=== PATIENT | female | born 1990 ===

== ENCOUNTER 2017-04-01 16:07 | Emergency (ER) | payer OTHER ==
[2017-04-01 17:20] LABS: RBC URINE 2 /hpf (0-3); URINE BACTERIA OCC (<OCC); URINE BILIRUBIN NEGATIVE (NEGATIVE); URINE BLOOD NEGATIVE (NEGATIVE); URINE COLOR Yellow (YELLOW); URINE GLUCOSE (UA) NORMAL (Normal); URINE KETONE TRACE mg/dL (NEGATIVE); URINE LEUKOCYTE ESTERASE 2+ Leu/uL (Negative); URINE PROTEIN NEGATIVE (NEGATIVE); URINE UROBILINOGEN NORMAL mg/dL (0.2-1.0); WBC URINE 12 /hpf (0-5)
--- NOTE | 2017-04-01 17:37 | OBHP ---
Datetime: 04/01/2017 16:54 IP Adm Impression: , intrauterine ; No Active Labor Admit Comment, IP Provider: 26 yo P1, LMP 07/25/16, VINAY 04/30/17, EGA 35w 6d c/o more noticeable SOB e arlier today approx 12 noon; and 1 episode of vomiting after eating her usual breakfast of egg, bread and tea - no further vomiting since. Also, c/o generalized lower abdominal discomfort - all of whic h more significant since earlier today. (+) AFM; denies LOF, VB, Ctx. Ob: Dr. Karley Wei. SOB noted x "weeks ago"; started on iron for anemia, a most probable contributing factor. Patient de nies any other issues P Ob: 2013, C/S, female 2.75 Kg, Gest HTN; Mulu. 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 Iron - BID Soc Hx: denies tobacco, illicit drug or EtOH use. x 5 years. Not working. Fam Hx: Mother alive 55 - heart disease, S/P [place] and angioplasty. Father alive 60 - heart disease, S/P [place] and bypass. No known fam h/o cancer P.E.: as above. Small, in NAD. Awake, alert, oriented to time, person and place. Pleasant and coop erative. Assessment: 26 y.o. P1, 35w 6d, prev C/S, SOB, anemia, vomited x 1 earlier today. SOB is long-sta nding; per priv OB - patient has had a negative ECG by her primary internal medicine provider. Has co unseled patient on cardiology consultation. Vital signs are stable. Oxygen saturation 98% on room air . Category 1 tracing. Clinically stable. R/O UTI Plan: 1) U/A (treat for UTI if suggestive) 2) Observe - as per Dr. Wei Addendum: 1731` hours U/A: leuk esterase 2+; WBC 12. S.G. 1/105, pH 7; hazy Assessment: early UTI. Anemia - as above. Patient instructed to increase p.o. intake of water and to continue iron supplementation. Per Dr. Wei will provide patient with information for cardiology consultation at time of visit 04/06/17. Clinically stable. Plan: 1) Discharge home 2) Rx: keflex 500 mg po BID x 7days 3) Reviewed S/S PTL 4) Continue PNV and iron 5) Keep next scheduled appointment Pelvic Type - PN: Adequate Extremities - PN: Normal Abdomen - PN: Normal Back - PN: Normal Breast - PN: Not Done Lungs - PN: Normal Heart - PN: Normal Thyroid - PN: Not Done Neurologic - PN: Normal HEENT - PN: Normal General - PN: Normal Presentation-Admit: Vertex FHR - Baseline A Provider: 145 Contraction Comments Provider: none Comments, ACOG Physical Exam: Back: no CVA tenderness Abdomen: gravid. soft; non tender in all quadrants. Healed Pfannenstiel scar All other systems reviewed and are negative Gestation - Est Wks by US: 35w 6d EGA AdmitDate IP: 35.6 Vital Signs Provider: Reviewed; Within Normal Limits IP Chief Complaint: Maternal discomfort NICHD Variability Prov Fetus A: Moderate 6-25bpm NICHD Accel Fetus A IP Provider: 15X15 FHR Category Provider Fetus A: Category I NICHD Decel Fetus A IP Provider: None Dilatation, Provider: 0 Effacement, Provider: 0 Station, Provider: -3 Genitourinary Exam: Normal DTRs - PN: Not Done
== END 2017-04-01 17:35 | disposition home or self-care (01) ==
LOC: C.EROB 16:07
DX: O23.43 Unspecified infection of urinary tract in pregnancy, third trimester (principal); O99.013 Anemia complicating pregnancy, third trimester; Z3A.35 35 weeks gestation of pregnancy

== ENCOUNTER 2017-04-30 09:23 | Inpatient (IN) | payer OTHER ==
--- NOTE | 2017-04-30 13:48 | OBHP ---
Datetime: 04/30/2017 13:00 IP Adm Impression: Term, intrauterine IP Admit Plan: Admit to unit Admit Comment, IP Provider: chief complaint-contractions HPI 26 y/o at 40 wga with c/o contractions.pain 6/10 since last night. pt denies vaginal blee ding or loss of fluid,patient denies nausea, vomiting, headache, chest pain, shortness of breath course uncomplicated P Ob: 2013, C/S, female 2.75 Kg, Gest HTN; Mulu. 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 Iron - BID Soc Hx: denies tobacco, illicit drug or EtOH use. x 5 years. Not working. Fam Hx: Mother alive 55 - heart disease, S/P [place] and angioplasty. Father alive 60 - heart disease, S/P [place] and bypass. No known fam h/o cancer Bedside Sonogram KATHY 4.8cm, BPP 6/8 vtx, anterior placeta Exam see exam section A/P 39 y/o at 40 wga with oligohydramnios Pelvic Type - PN: Adequate Extremities - PN: Normal Abdomen - PN: Normal Back - PN: Normal Lungs - PN: Normal Heart - PN: Normal Neurologic - PN: Normal General - PN: Normal Weight - Estimated: 3400 FHR - Baseline A Provider: 135 Membranes, Provider: Intact Contraction Comments Provider: irregular Gestation - Est Wks by US: 40.0 IP Hx Assessment: The History has been Reviewed and is Current EGA AdmitDate IP: 40.0 Vital Signs Provider: Reviewed; Within Normal Limits IP Chief Complaint: Uterine contractions NICHD Variability Prov Fetus A: Moderate 6-25bpm NICHD Accel Fetus A IP Provider: 15X15 FHR Category Provider Fetus A: Category I NICHD Decel Fetus A IP Provider: None Dilatation, Provider: 1 Effacement, Provider: 30 Station, Provider: -3 Genitourinary Exam: Normal DTRs - PN: Normal
[2017-04-30] MEDS ORDERED: Sodium Citrate/Citric Acid 15 ml Sol PO ONE (14:02)
[2017-04-30] MEDS ORDERED: Oxycodone/Acetaminophen 5/325 mg Tab PO PRN (14:03)
[2017-04-30 14:15] LABS: BASO % 0.3 % (0.0-2.0); EOS % 0.6 % (0.0-4.0); HEMOGLOBIN 12.5 g/dL (11.0-16.0); LYMPH # 1.5 K/uL (1.0-4.3); LYMPH % 19.5 % (20.0-40.0); MEAN CELL VOLUME 93.6 fL (81.0-99.0); MEAN CORPUSCULAR HEMOGLOBIN 31.6 pg (27.0-31.0); MEAN CORPUSCULAR HGB CONC 33.7 g/dL (33.0-37.0); MEAN PLATELET VOLUME 10.9 fL (7.2-11.7); MONO # 0.5 K/uL (0.0-0.8); MONO % 6.9 % (0.0-10.0); NEUT # 5.6 K/uL (1.8-7.0); NEUT % 72.7 % (50.0-75.0); RBC 3.96 Mil/uL (3.80-5.20); RED CELL DISTRIBUTION WIDTH 13.3 % (11.5-14.5); WHITE BLOOD COUNT 7.8 K/uL (4.8-10.8)
[2017-04-30 14:25] LABS: ALBUMIN 3.4 g/dL (3.5-5.0); SQUAMOUS EPITHIAL 15 /hpf (0-5); URINE BACTERIA MANY (<OCC); URINE BILIRUBIN NEGATIVE (NEGATIVE); URINE BLOOD 1+ (NEGATIVE); URINE CLARITY Hazy (Clear); URINE COLOR Yellow (YELLOW); URINE GLUCOSE (UA) NORMAL (Normal); URINE LEUKOCYTE ESTERASE 1+ Leu/uL (Negative); URINE NITRATE NEGATIVE (NEGATIVE); URINE PROTEIN NEGATIVE (NEGATIVE); URINE UROBILINOGEN NORMAL mg/dL (0.2-1.0)
[2017-04-30] MEDS ORDERED: Morphine 4 MG/ML VIAL ONE (14:25)
[2017-04-30 14:28] LABS: ALB/GLOB RATIO 0.9 (1.0-2.1); AST/SGOT 19 U/L (14-36); GFR AFRICAN-AMERICAN > 60; GFR NON-AFRICAN AMERICAN > 60
[2017-04-30 14:29] LABS: ALT/SGPT 24 U/L (9-52); BLOOD UREA NITROGEN 8 mg/dL (7-17); CALCIUM 8.9 mg/dl (8.6-10.4)
[2017-04-30 14:59] LABS: HEPATITIS B SURFACE AG NEGATIVE (NEGATIVE)
[2017-04-30] MEDS ORDERED: cefOXitin IV 2 gm in Dextrose 2 GM/50 ML BAG IVPB ONE (15:00)
[2017-04-30] MEDS ORDERED: Phenylephrine 10 mg/ml Inj ONE (15:50)
[2017-04-30] MEDS: Simethicone 80 mg Chewtab PO SCH ×2 (18:55→22:58)
[2017-04-30] MEDS ORDERED: Morphine 4 MG/ML VIAL IVP PRN (20:38)
[2017-04-30] MEDS: cefOXitin IV 2 gm in Dextrose 2 GM/50 ML BAG IVPB SCH (21:33)
[2017-05-01] MEDS: cefOXitin IV 2 gm in Dextrose 2 GM/50 ML BAG IVPB SCH ×2 (06:14→13:48)
[2017-05-01 07:30] LABS: BASO % 0.2 % (0.0-2.0); EOS % 0.4 % (0.0-4.0); HEMOGLOBIN 10.9 g/dL (11.0-16.0); LYMPH # 0.9 K/uL (1.0-4.3); LYMPH % 10.6 % (20.0-40.0); MEAN CELL VOLUME 93.7 fL (81.0-99.0); MEAN CORPUSCULAR HEMOGLOBIN 31.1 pg (27.0-31.0); MEAN CORPUSCULAR HGB CONC 33.2 g/dL (33.0-37.0); MEAN PLATELET VOLUME 10.9 fL (7.2-11.7); MONO # 0.5 K/uL (0.0-0.8); MONO % 5.7 % (0.0-10.0); NEUT # 7.2 K/uL (1.8-7.0); NEUT % 83.1 % (50.0-75.0); RBC 3.49 Mil/uL (3.80-5.20); RED CELL DISTRIBUTION WIDTH 13.3 % (11.5-14.5); WHITE BLOOD COUNT 8.6 K/uL (4.8-10.8)
--- NOTE | 2017-05-01 09:18 | PCM.SURG1 ---
Surgeon's Initial Post Op Note - Surgeon's Notes Surgeon: Karley Wei MD Head Athletic Trainer/Strength Coach: Cristo Pereira MD Type of Anesthesia: Spinal Pre-Operative Diagnosis: Previous Cesearean section, deborah in labor, oligohyramnios, Term intrauterien Operative Findings: live , cephalic presentation, agpars 9,9 wegiht 7lbs2 ounces, normal appearing uterus, tubes adn ovareis bilaerally, mortgage or loan underwriter present for delivery. Dr Cristo Pereira was surgial patent legal assistant and present for entire case and essential in gaining entry retraction, expsoure holidng bladder blade, helping to delivery baby, closing all layers and obtaining hemostasis. Post-Operative Diagnosis: same as above Operation Performed: Repeat Low Transverse Cecsearen section Specimen/Specimens Removed: placenta Estimated Blood Loss: EBL {In ML}: 700 Blood Products Given: N/A Drains Used: No Drains Date of Surgery/Procedure: 04/30/17 Time of Surgery/Procedure: 15:00
--- NOTE | 2017-05-01 09:21 | CP.PCM.PN ---
Subjective - Date & Time of Evaluation Date of Evaluation: 05/01/17 Time of Evaluation: 07:30 - Subjective Subjective: pt seen adn elier and reports pian controlled. pt states just got out of bed, not yet voided as rodriguez just removed. pt denies any fevers, chills nause, vomiting, tolerating diet. pt denies any cp, sob. Objective - Vital Signs/Intake and Output Vital Signs (last 24 hours): Temp Pulse Resp BP Pulse Ox 98.2 F 94 H 20 119/82 98 05/01/17 00:10 05/01/17 00:10 05/01/17 00:10 05/01/17 00:10 05/01/17 00:10 - Medications Medications: Current Medications Docusate Sodium (Colace) 100 mg PO BID OSIEL Ferrous Sulfate (Feosol) 325 mg PO DAILY OSIEL Oxytocin (Pitocin 20 Units In Lr) 1,000 mls @ 125 mls/hr IV .Q8H OSIEL PRN Reason: Protocol Last Admin: 04/30/17 17:21 Dose: 125 mls/hr Cefoxitin Sodium (Mefoxin Iv 2 Gm Duplex) 2 gm in 50 mls @ 100 mls/hr IVPB Q8H [facility] Stop: 05/01/17 14:29 Last Admin: 05/01/17 06:14 Dose: 100 mls/hr Ibuprofen (Motrin Tab) 600 mg PO Q4 PRN PRN Reason: Pain, Mild (1-3) Last Admin: 05/01/17 08:24 Dose: 600 mg Morphine Sulfate (Morphine) 4 mg IVP Q4 PRN PRN Reason: Pain, severe (8-10) Last Admin: 04/30/17 20:58 Dose: 4 mg Oxycodone/Acetaminophen (Percocet 5/325 Mg Tab) 1 tab PO Q4H PRN PRN Reason: Pain, moderate (4-7) Stop: 05/03/17 14:04 Last Admin: 05/01/17 05:05 Dose: 1 tab Oxycodone/Acetaminophen (Percocet 5/325 Mg Tab) 2 tab PO Q4H PRN PRN Reason: Pain, severe (8-10) Stop: 05/03/17 14:04 Simethicone (Mylicon Chew Tab) 80 mg PO QID [facility] Last Admin: 04/30/17 22:58 Dose: Not Given - Labs Labs: 05/01/17 07:15 04/30/17 14:03 - Head Exam Head Exam: ATRAUMATIC, NORMAL INSPECTION - Eye Exam Eye Exam: EOMI, Normal appearance - ENT Exam ENT Exam: Mucous Membranes Moist - Neck Exam Neck Exam: Full ROM, Normal Inspection - Cardiovascular Exam Cardiovascular Exam: REGULAR RHYTHM, +S1, +S2 - GI/Abdominal Exam GI & Abdominal Exam: Soft, Normal Bowel Sounds Additional comments: NT/No guarding, no rebound tenderness, no rigidity, +BS Fundus: firm, at level of umbilus incsion c/d/i moderate lochia, non foul smelling - Extremities Exam Additional comments: negatieve, thomas's sign, no calf tendneree b/l Assessment and Plan (1) Previous section Assessment & Plan: 1. s/p delivery 2. Pain managment: percoet/ motirn 3. d/c rodriguez 4. advance diet as tolerated 5. bowel regimen 6, incentive spirometer, / abdominal binder 7. am albs Status: Acute
[2017-05-01] MEDS: Simethicone 80 mg Chewtab PO SCH ×4 (09:48→22:00)
--- NOTE | 2017-05-01 12:17 | OBPPN ---
Datetime: 05/01/2017 12:12 PP Pain Prov: Within normal limits PP Nausea Prov: Denies PP Flatus Prov: No PP Abdomen/Uterus Prov: Normal PP Lochia Prov: Normal PP Extremities Prov: Normal PP C/S Incision Prov: Normal PP Comments Phys Exam Prov: fudus below umblicus ext no edema,no calf ten incision clan and dry PP Impression Prov: Normal progression PP Plan Prov: Continue present management PP Progress Note Prov: pt was seen at bed side, pain under control, no n/v, tolerating deit, voiding ,min lochia. pod#1 s/p c/s cbc advance deit as tolerated encourage ambulation cont pain heidy cont post op care Vital Signs Provider PP: Reviewed; Within Normal Limits
[2017-05-01] MEDS: Oxycodone/Acetaminophen 5/325 mg Tab PO PRN ×2 (13:41→19:50)
[2017-05-02] MEDS: Oxycodone/Acetaminophen 5/325 mg Tab PO PRN (00:14)
--- NOTE | 2017-05-02 06:14 | OP ---
PROCEDURE DATE: 04/30/2017 PREOPERATIVE DIAGNOSES: Previous section, deborah in labor, and oligohydramnios from intrauterine . POSTOPERATIVE DIAGNOSES: Previous section, deborah in labor, and oligohydramnios from intrauterine . PROCEDURE: Repeat low transverse caesarean section. SURGEON: Karley Wei MD HEALTH COUNSELOR: Cristo Pereira MD TYPE OF ANESTHESIA: Spine. OPERATIVE FINDINGS: Live infant, cephalic presentation, Apgars 9 and 9, weight is 7 pounds, 2 ounces, and normal appearing uterus, tubes, and ovaries bilaterally. FOREIGN LAW CONSULTANT PRESENT FOR DELIVERY: Dr. Cristo Pereira with surgical assistance and present for entire case and was integral in gaining entry, retraction and closure, holding the bladder by helping to deliver the baby, closing all layers, and obtaining hemostasis. ESTIMATED BLOOD LOSS: 700 mL. BLOOD PRODUCTS AND COMPLICATIONS: None. SPECIMEN REMOVED: Placenta. DESCRIPTION OF PROCEDURE: The patient is a 26-year-old G2, P1-0-0-1 at 40 weeks exactly with prior section that presented with contraction pain, increasing in intensity and frequency. Upon evaluation, the patient was noted only to be 1 cm dilated and the bedside sonogram revealed a BPP of 678 with an KATHY of 4.8 cm. The patient was counseled on risks, benefits, alternatives, and indications of repeat section versus trial of labor after section. The patient initially considered trial of labor after section, but then after sometime decided that it was not safe for her to proceed and would like to proceed with the repeat section. The patient was appropriately *------* and the patient was taken to the operating room. The patient was given combined spinal epidural anesthesia. Once it was found to be adequate, she was placed on the operating table in the dorsal supine position. The patient was then prepped and draped in the usual sterile fashion and a time-out was confirmed correct patient and correct procedure. The patient was given preoperative prophylactic antibiotic. A Pfannenstiel skin incision was made through the existing incision and carrying down to the underlying fascia with the Bovie. The fascia was incised in the midline *------* with the Bovie. The superior aspect of the fascial incision was grasped with Allis and Jonel clamps and the underlying rectus muscle resected off bluntly. The rectus muscles was then bluntly in the midline and the peritoneum identified in the clear space entered laterally and superiorly until there was good visualization of the bladder. The lower end of the [place] was then inserted and the vesicouterine peritoneum was incised with the Metzenbaum scissors, the incision was extended laterally. The bladder flap was created digitally and the lower end of the [place] was then reinserted. The lower uterine segment was incised in transverse fashion and the lower uterine segment was incised laterally and bluntly. The surgeon's hand entered the uterine cavity and the 's head was delivered atraumatically. There was tight nuchal cord x1 that was reduced followed by atraumatic delivery of shoulders and the body. Both oral and nasal passages of the baby were bulb suctioned. The umbilical cord was clamped and cut and the baby was handed off to the awaiting casting and pasting supervisor. The cord blood was collected and sent x2. The placenta was then delivered manually. The uterus was exteriorized and cleared off all clots and debris. The uterine incision was closed with 0 Vicryl in a running continuous locked fashion. A second layer of the same suture was used to close the uterus in a running imbricated manner. There was good hemostasis of the uterine incision site. The uterus was then returned into the abdomen and paracolic gutters were cleared off all clots and debris. The peritoneum was reapproximated and closed with 2-0 chromic in a continuous manner and skin was reapproximated and closed with 2-0 chromic in an interrupted manner. Subcutaneous layer was closed with 2-0 plain in an interrupted manner and the skin was reapproximated and closed with 4-0 Monocryl in a running subcuticular fashion. At the end of the procedure, all needles, sponge, and instrument counts were noted and corrected x2 and the patient tolerated the procedure well and was transferred to the recovery room in stable condition. Karley Wei MD
--- NOTE | 2017-05-02 08:31 | OBPPN ---
Datetime: 05/02/2017 08:28 PP Pain Prov: Within normal limits PP Nausea Prov: Denies PP Flatus Prov: Yes PP Abdomen/Uterus Prov: Normal PP Lochia Prov: Normal PP Extremities Prov: Normal PP C/S Incision Prov: Normal PP Comments Phys Exam Prov: fudus below umblicus ext no edema,no calf ten incision clean and dry PP Impression Prov: Normal progression PP Plan Prov: Continue present management PP Progress Note Prov: pt was seen at bed side, pain under control, no n/v, tolertaing deit, voiding ,min lochia, flatus+ pod#2 s/p c/s cont pain manag cont post op care encourage ambulation Vital Signs Provider PP: Reviewed; Within Normal Limits
[2017-05-02] MEDS: Simethicone 80 mg Chewtab PO SCH ×4 (09:29→22:55)
[2017-05-02 16:02] VITALS: RESP 20; TEMP 98.1; O2SAT 99
[2017-05-03] MEDS: Oxycodone/Acetaminophen 5/325 mg Tab PO PRN (00:18)
[2017-05-03 00:34] VITALS: BP 118/81; PULSE 99
--- NOTE | 2017-05-03 07:13 | OBDS ---
DELIVERY PERSONNEL Delivery Doctor: Ricardo Wei MD Scrub Nurse: Riana White OBT Benefits Director: Yoko Peterson RN Anesthesiologist: Cristian Beltran MD MATERNAL INFORMATION Medications in Delivery: pitocin Estimated Blood Loss (ml): 700 Placenta Cultured: No Maternal Complications: None RN Comments: Rc/secto to a live baby boy, attended to by dr. Flores and Shira Combs RN. 9:9, stable at mother's bedside. Provider Comments: live male infant, cephalic presentation, apgars 9,9 no complications LABOR SUMMARY EDC: 04/30/2017 00:00 No. Babies in Womb: 1 Attempted: No Labor Anesthesia: None LABOR INFORMATION Group B Beta Strep: Negative Antibiotics # of Doses: 1 Antibiotics Time of Last Dose: 1430 MEMBRANES Membranes Rupture Method: Artificial Rupture of Membranes: 04/30/2017 15:00 Length of Rupture (hrs): 0.03 Amniotic Fluid Color: Clear Amniotic Fluid Amount: Moderate Amniotic Fluid Odor: Normal STAGES OF LABOR Stage 3 hrs: 0 Stage 3 min: 0 CSECTION DELIVERY Primary Indication: Repeat Elective CSection Urgency: Elective CSection Incidence: Repeat Labor: No Labor Elective: Elective CSection Incision: Lower Uterine Transverse BABY A INFORMATION Infant Delivery Date/Time: 04/30/2017 15:02 Method of Delivery: Born in Route : No : N/A Forceps: N/A Vacuum Extraction: N/A Shoulder Dystocia : No SHOULDER DYSTOCIA BABY A Infant Delivery Date/Time: 04/30/2017 15:02 PRESENTATION/POSITION BABY A Presentation: Cephalic Cephalic Presentation: Vertex Vertex Position: Left Occipital Anterior Breech Presentation: N/A PLACENTA INFORMATION BABY A Placenta Delivery Time : 04/30/2017 15:02 Placenta Method of Delivery: Manual Removal Placenta Status: Delivered SCORES BABY A Heart Rate 1 min: >100 bpm Resp Effort 1 min: Good Cry Reflex Irritability 1 min: Cough or Sneeze or Pulls Away Muscle Tone 1 min: Active Motion Color 1 min: Body [place], Extremities Blue SCORE 1 MIN: 9 Heart Rate 5 min: >100 bpm Resp Effort 5 min: Good Cry Reflex Irritability 5 min: Cough or Sneeze or Pulls Away Muscle Tone 5 min: Active Motion Color 5 min: Body [place], Extremities Blue SCORE 5 MIN: 9 INFANT INFORMATION BABY A Gestational Age at Delivery: 40.0 Gestational Status: Term Outcome : Liveborn Condition : Stable Infant Sex: Male IDENTIFICATION/MEDS BABY A ID Band Number: [id number] ID Band Location: Left Leg; Left Arm Sensor Applied: Yes Sensor Number: [id number] Sensor Location : Cord Clamp Vitamin K Given : Not Given Erythromycin Given: Not Given WEIGHT/LENGTH BABY A Birthweight (gms): 3355 Infant Weight (lb): 7 Infant Weight (oz): 6 Length Inches: 20.25 Infant Length cms: 51.4 CORD INFORMATION BABY A No. Cord Vessels: 3 Nuchal Cord : Around Neck x1, Tight True Knot: 0 Cord Blood Taken: Yes Banking/Donate Info: N/A Suction: Mouth; Nose ASSESSMENT BABY A Complications: None Physical Findings at Delivery: Within Normal Limits Infant Respirations: Appears Normal Data Transcriber/ALS Called : No Infant Care By: DR. FLORES Transferred To: Remains with Mother
--- NOTE | 2017-05-03 07:14 | OBDS ---
DELIVERY PERSONNEL Delivery Doctor: Ricardo Wei MD Scrub Nurse: Riana White OBT Bolt Sorter: Yoko Peterson RN Anesthesiologist: Cristian Beltran MD MATERNAL INFORMATION Medications in Delivery: pitocin Estimated Blood Loss (ml): 700 Placenta Cultured: No Maternal Complications: None RN Comments: Rc/secto to a live baby boy, attended to by dr. Flores and Shira Combs RN. 9:9, stable at mother's bedside. Provider Comments: live male infant, cephalic presentation, apgars 9,9 no complications LABOR SUMMARY EDC: 04/30/2017 00:00 No. Babies in Womb: 1 Attempted: No Labor Anesthesia: None LABOR INFORMATION Group B Beta Strep: Negative Antibiotics # of Doses: 1 Antibiotics Time of Last Dose: 1430 MEMBRANES Membranes Rupture Method: Artificial Rupture of Membranes: 04/30/2017 15:00 Length of Rupture (hrs): 0.03 Amniotic Fluid Color: Clear Amniotic Fluid Amount: Moderate Amniotic Fluid Odor: Normal STAGES OF LABOR Stage 3 hrs: 0 Stage 3 min: 0 CSECTION DELIVERY Primary Indication: Repeat Elective CSection Urgency: Elective CSection Incidence: Repeat Labor: No Labor Elective: Elective CSection Incision: Lower Uterine Transverse BABY A INFORMATION Infant Delivery Date/Time: 04/30/2017 15:02 Method of Delivery: Born in Route : No : N/A Forceps: N/A Vacuum Extraction: N/A Shoulder Dystocia : No SHOULDER DYSTOCIA BABY A Infant Delivery Date/Time: 04/30/2017 15:02 PRESENTATION/POSITION BABY A Presentation: Cephalic Cephalic Presentation: Vertex Vertex Position: Left Occipital Anterior Breech Presentation: N/A PLACENTA INFORMATION BABY A Placenta Delivery Time : 04/30/2017 15:02 Placenta Method of Delivery: Manual Removal Placenta Status: Delivered SCORES BABY A Heart Rate 1 min: >100 bpm Resp Effort 1 min: Good Cry Reflex Irritability 1 min: Cough or Sneeze or Pulls Away Muscle Tone 1 min: Active Motion Color 1 min: Body [place], Extremities Blue SCORE 1 MIN: 9 Heart Rate 5 min: >100 bpm Resp Effort 5 min: Good Cry Reflex Irritability 5 min: Cough or Sneeze or Pulls Away Muscle Tone 5 min: Active Motion Color 5 min: Body [place], Extremities Blue SCORE 5 MIN: 9 INFANT INFORMATION BABY A Gestational Age at Delivery: 40.0 Gestational Status: Term Outcome : Liveborn Condition : Stable Infant Sex: Male IDENTIFICATION/MEDS BABY A ID Band Number: [id number] ID Band Location: Left Leg; Left Arm Sensor Applied: Yes Sensor Number: [id number] Sensor Location : Cord Clamp Vitamin K Given : Not Given Erythromycin Given: Not Given WEIGHT/LENGTH BABY A Birthweight (gms): 3355 Infant Weight (lb): 7 Infant Weight (oz): 6 Length Inches: 20.25 Infant Length cms: 51.4 CORD INFORMATION BABY A No. Cord Vessels: 3 Nuchal Cord : Around Neck x1, Tight True Knot: 0 Cord Blood Taken: Yes Banking/Donate Info: N/A Suction: Mouth; Nose ASSESSMENT BABY A Complications: None Physical Findings at Delivery: Within Normal Limits Infant Respirations: Appears Normal Shrimp Picker/ALS Called : No Infant Care By: DR. FLORES Transferred To: Remains with Mother
--- NOTE | 2017-05-03 07:15 | OBPPN ---
Datetime: 05/03/2017 07:12 PP Pain Prov: Within normal limits PP Nausea Prov: Denies PP Flatus Prov: Yes PP BM Prov: Yes PP Breasts Prov: Normal PP Heart Prov: Normal PP Lungs Prov: Normal PP Abdomen/Uterus Prov: Normal PP Lochia Prov: Normal PP Vulva/Perineum Prov: Normal PP CVA Tenderness Prov: Normal PP Extremities Prov: Normal PP Progress Prov: Normal PP Comments Phys Exam Prov: GEN NAD, AAN ox 3 RESP: CTAB? CVS RRR, +S1/S2 ABD: soft, NT/ND Fudnus; Firm, below level of umbiucs moderate lochia, non foul smelling INCSION C/D/I EXT no calf tendenress b/l PP Progress Note Prov: pt seen and examined and reports pain well controlled iwth medicatin. pt remigio es any cp, sob, lightheadness, dizzyness. VSS PE see above A/p s/p RLTCS POD #3 doing well -d/c home -rto 1 week -precautins given Vital Signs Provider PP: Reviewed
--- NOTE | 2017-05-03 07:15 | OBDCSUM ---
Datetime: 05/03/2017 07:14 Discharged to, Provider: Home Follow up at, Provider: Dr Wei Disch Instr Activity: Normal activity Disch Instr Diet: Regular Discharge Instructions, Provider: Routine instructions given Discharge Diagnosis, Provider: Term Delivered Discharge Time: 05/03/2017 12:00 Follow up in weeks, Provider: 1 week Disch Referrals: None Contraception discussed, Prov: Yes Disch Activity Restrictions: No sexual activity; Nothing in vagina - [place], tampons, douche Discharge Comment, Provider: if fever, heavy bleeding, uncontrolled pain call md and go to hospital Contraception after Delivery: Not Planning to Use
[2017-05-03] MEDS: Simethicone 80 mg Chewtab PO SCH ×2 (09:32→09:35)
== END 2017-05-03 16:00 | disposition home or self-care (01) | DRG 766 ==
LOC: C.EROB 09:23 → C.4D 13:37 → C.4M 18:52
PROVIDERS: ADMIT Obstetrics & Gynecology; ATTEND Obstetrics & Gynecology
PROC: 10D00Z1 Extraction of Products of Conception, Low, Open Approach (ICD-10-PCS; principal; 2017-04-30)
DX: O41.03X0 Oligohydramnios, third trimester, not applicable or unspecified (principal); O69.1XX0 Labor and delivery complicated by cord around neck, with compression, not applicable or unspecified; O34.219 Maternal care for unspecified type scar from previous cesarean delivery; Z3A.40 40 weeks gestation of pregnancy; Z37.0 Single live birth